=== PATIENT | male | born 1965 | race Caucasian/White ===

== ENCOUNTER 2020-04-07 19:43 | Emergency (ER) | payer MEDICAID ==
[~2020-04-07] VITALS: Ht 175.3 cm; Wt 70.3 kg
[2020-04-07] MEDS ORDERED: diphenhydrAMINE HCL ELIX 25 MG/10 ML UDC PO ONE (20:30)
[2020-04-07] MEDS ORDERED: predniSONE 50 MG TABLET PO ONE (20:30)
[2020-04-07] MEDS ORDERED: FAMOTIDINE (20 MG) 20 MG TABLET PO ONE (20:30)
[2020-04-07] MEDS ORDERED: FAMOTIDINE (20 MG) 20 MG TABLET ONE (20:35)
[2020-04-07] MEDS ORDERED: diphenhydrAMINE HCL 25 MG CAPSULE ONE (20:35)
[2020-04-07] MEDS ORDERED: predniSONE 10 MG TABLET ONE (20:35)
[2020-04-07] MEDS ORDERED: predniSONE 20 MG TABLET ONE (20:36)
--- NOTE | 2020-04-07 20:43 | NUR ---
Patient discharged to home in stable condition. Written and verbal after care instructions given. Patient verbalizes understanding of instruction.
[2020-04-07 21:10] VITALS: BP 122/83
== END 2020-04-07 21:11 | disposition home or self-care (01) ==
LOC: ER 19:47
DX: T65.811A Toxic effect of latex, accidental (unintentional), initial encounter (principal); I10 Essential (primary) hypertension; Z90.5 Acquired absence of kidney; Z88.6 Allergy status to analgesic agent; Z91.048 Other nonmedicinal substance allergy status; Y92.89 Other specified places as the place of occurrence of the external cause
CPT/HCPCS: 99284; J7512 ×2; Q0163